=== PATIENT | male | born 1970 | race Caucasian/White ===

== ENCOUNTER 2024-05-23 02:55 | Emergency (ER) | payer OTHER, SELFPAY ==
[~2024-05-23] VITALS: Ht 180.3 cm; Wt 100.0 kg
[2024-05-23 02:55] VITALS: BP 122/83; PULSE 84; RESP 20; O2SAT 96
[2024-05-23 03:53] LABS: Basophils # (auto) 0.1 10 ^3/uL (0-0.2); Basophils % (auto) 0.7 % (0.0-2.0); Eosinophils # (auto) 0.3 10 ^3/uL (0-0.8); Eosinophils % (auto) 2.8 % (0.0-7.0); Hematocrit 46.2 % (41.0-53.0); Hemoglobin 15.9 g/dL (13.5-17.5); Lymphocytes # (auto) 1.1 10 ^3/uL (0.4-5.4); Mean Corpuscular Hemoglobin 29.5 pg (28.0-32.0); Mean Corpuscular Hgb Conc. 34.3 g/dL (32.0-36.0); Mean Corpuscular Volume 85.8 fL (80.0-100.0); Monocytes # (auto) 0.8 10 ^3/uL (0-1.3); Monocytes % (auto) 8.1 % (0.0-12.0); Neutrophils # (auto) 7.5 10 ^3/uL (1.6-8.6); Neutrophils % (auto) 77.4 % (37.0-80.0); Nucleated Red Blood Cells % 0.1 %; Platelet Count (auto) 187 10^3/uL (140-450); Red Blood Cells 5.39 10^6/uL (4.5-5.90); Red Cell Distribution Width 13.8 % (11.8-14.3); White Blood Cell 9.6 10^3/uL (4.4-10.8)
[2024-05-23 04:11] LABS: Alanine Aminotransferase 18 U/L (7-40); Alkaline Phosphatase 75 U/L (46-116); Anion Gap 8 (5-15); Aspartate Aminotransferase 11 U/L (13-40); BUN/Creatinine Ratio 22.5 (10.0-20.0); Bilirubin, Total 0.4 mg/dL (0.2-1.0); Blood Urea Nitrogen 16 mg/dL (9-23); Calcium 9.1 mg/dL (8.7-10.4); Carbon Dioxide 23 mmol/L (20-31); Chloride 106 mmol/L (98-107); Glucose 237 mg/dL (74-106); Lipase 33 U/L (12-53); Potassium 3.8 mmol/L (3.5-5.1); Sodium 137 mmol/L (136-145); Total Protein 6.3 g/dL (5.7-8.2)
== END 2024-05-23 06:11 | disposition home or self-care (01) ==
LOC: EDBD 02:55 → ER 02:55
DX: K52.9 Noninfective gastroenteritis and colitis, unspecified (principal); E11.9 Type 2 diabetes mellitus without complications
CPT/HCPCS: 36415; 80053; 83690; 84484; 85025; 93005

== ENCOUNTER 2024-07-23 16:43 | Emergency (ER) | payer SELFPAY ==
[~2024-07-23] VITALS: Ht 180.3 cm; Wt 102.0 kg
--- NOTE | 2024-07-23 18:31 | DVH ---
RIGHT Upper Extremity Venous Duplex Clinical History: INJURY R/O DVT Comparison: None Technique: Duplex Doppler evaluation of the venous system of the RIGHT lower neck and upper extremity including color Doppler and spectral/pulsed waveform analysis was performed. Findings: The internal jugular vein demonstrates appropriate compressibility and waveform variability. The subclavian vein is patent on color Doppler evaluation without intraluminal thrombus and demonstra afsaneh waveform variability. The visualized portion of the brachiocephalic vein is patent on color Doppler evaluation without intr aluminal thrombus and demonstrates waveform variability. The axillary vein demonstrates appropriate compressibility and waveform variability. The brachial veins demonstrate appropriate compressibility and patency on Doppler evaluation. The basilic vein demonstrates appropriate compressibility and patency on Doppler evaluation. The cephalic vein demonstrates appropriate compressibility and patency on Doppler evaluation. Impression: No venous thrombus identified in the RIGHT upper extremity vessels evaluated above. If clinical concern/symptoms persist or worsen, short-interval follow-up study is suggested. The ultrasound worksheet states there is a anechoic structure measuring 6.2 cm of the area of interes t however the given images demonstrate a heterogeneously hypoechoic 2 cm lesion in the right upper ar m soft tissue which is not visualized on same-day CT. Question whether this represents a hematoma . C onsider follow-up ultrasound for monitoring.
--- NOTE | 2024-07-23 18:35 | DVH ---
INDICATION: INJURY COMPARISON: None TECHNIQUE: CT of the right upper extremity was performed without contrast. Volume transverse images w ere obtained and reconstructed in multiple planes using bone and soft tissue algorithms. CONTRAST: None Radiation Dose Information: CTDI volume is 32.29 mGy. Dose-length product is 1407.57 mGy*cm Findings/ IMPRESSION: No acute fracture. Moderate degenerative changes of the right AC joint. Nlua-dx-rwygiojj degenerativ e changes of the glenohumeral joint. No dislocation or focal osseous lesion. The soft tissues are normal. The imaged portions of the mediastinum and right hemithorax are normal. All CT scans at this medical facility are performed using dose modulation techniques as appropriate t o a performed exam including the following: Automated exposure control was utilized; adjustment of th e MA and/or KV according to patient size; and use of iterative reconstruction technique.
--- NOTE | 2024-07-23 19:47 | ED.PDOC ---
Musculoskeletal HPI Comments HPI: Poor Historian. 54-year-old male presents to the emergency department for evaluation of right shoulder right arm pain/injury that happened at work at [employer]. Patient was helping lifting a stack of tiles and as he was lifting it up and throwing it in a container, he felt an immediate sharp pain in his right distal shoulder region near the deltoid and below the deltoid and he noted a bulging swelling in that area for the last few days. This injury happened on proximally four days ago. The area is tender to palpation and swollen. There is minimal contus ion of the medial aspect of the humerus region. He complains of decreased range of motion secondary to pain with certain movement of the right upper extremity. Patient has been taking Advil and Tylenol for pain control. Patient is not on any blood thinners. Patient also complains of right pinky finger intermittent numbness and tingling. Past Medcial History: Hyperlipidemia, hypertension, diabetes Past Surgical History: Denies any REVIEW OF SYSTEMS: CONSTITUTIONAL: Denies acute: fever, diaphoresis, chills, generalized weakness. HEAD: Denies acute: headache, photophobia Eyes: Denies acute: Double vision, vision loss, eye pain, eye discharge. EARS: Denies acute: tinnitus, hearing loss, ear discharge, ear pain, THROAT: Denies acute: sore throat, swelling, difficulty swallowing , pain with swallowing, change in voice. NECK: Denies acute: neck pain, neck swelling, stiff neck. HEART: Denies acute : chest pain, palpitations, LUNGS: Denies acute: SOB, wheezing, cough, hemoptysis ABDOMEN: Denies acute: abdominal pain, Nausea, Vomiting, diarrhea, melena , hematemesis, hematochezia SKIN: Denies acute: rash, redness, lesions, itchiness. EXTREMITIES: Denies acute: calf pain, numbness, tingling, weakness, Denies acute: Low back pain. Neuro: Denies acute: focal neurological deficit, motor or sensory focal neurological deficit, tremors, seizure like activity, confusion, dizziness, change in mental status, loss of bowel or bladder function, cauda equina like symptoms. : Denies acute: dysuria, hematuria, flank pain, increase in urinary frequency. PSYCH: Denies acute: hallucination, suicidal ideation, homicidal ideation. PHYSICAL EXAM: General: Mild acute distress, awake and alert. Head: normocephalic, atraumatic. Neck: supple, trachea is midline, no swelling. Throat: Normal phonation. Eyes:, no erythema, no purulent discharge, no proptosis, no icterus. Heart: regular rate, regular rhythm, no significant murmur appreciated. Lungs: no apparent respiratory distress, Able to speak in full sentences. No wheezing, no rhonchi, no crackles. No stridors Clear to auscultation bilaterally. Abdomen: non tender to palpation, non distended, soft, no guarding, no rebound, + bowel sounds. Neuro: Awake, Alert, oriented to name, self, situation, follows commands GCS=15. Speech is normal. Skin: no petechia, no purpura, no cyanosis, non-pale, not jaundice. Lower extremities: --no - Pitting edema no deformity, no focal swelling, no calf TTP. Evaluation of the right upper extremity.: There is decreased range of motion of the right upper extremity due to pain. Isn't able to fully raise his arm. He is not able to lift heavy weight with his right upper extremity. Radial pulses palpable. Patient has a good cereal popper muscle. Sensation and motor are present. Patient is neurovascularly intact in the affected extremity. There is noted swelling below the right deltoid that is tender to palpation. Makes eye contact. moves all four extremities. Face: no apparent facial droop. Ambulating in the ED independently. Chief Complaint: Upper Extremity Time Seen by MD: 17:52 Primary Care Provider: WORK [employer] Reviewed Notes: Nurses Notes, Medications, Allergies Allergies: Coded Allergies: NO KNOWN ALLERGIES (Unverified , 07/23/24) Information Source: Patient Mode of Arrival: Ambulatory Location: Right Past Medical History PAST MEDICAL HISTORY: DM, HIV Surgical History: Denies all surgeries Family History Family History: Reviewed,noncontributory to illness Social History Smoker: Non-Smoker Alcohol: Denies ETOH Use Drugs: Denies Drug Use Lives In: Home X-Ray, Labs, Meds, VS Vital Signs Date Time Temp Pulse Resp B/P (MAP) Pulse Ox O2 Delivery O2 Flow Rate FiO2 07/23/24 17:20 98.2 92 18 126/91 (103) 97 Lab Test 07/23/24 19:59 Range/Units White Blood Count 9.0 4.4-10.8 10^3/uL Red Blood Count 5.91 H 4.5-5.90 10^6/uL Hemoglobin 16.9 13.5-17.5 g/dL Hematocrit 50.3 41.0-53.0 % Mean Corpuscular Volume 85.1 80.0-100.0 fL Mean Corpuscular Hemoglobin 28.6 28.0-32.0 pg Mean Corpuscular Hemoglobin Concent 33.7 32.0-36.0 g/dL Red Cell Distribution Width 13.4 11.8-14.3 % Platelet Count 207 140-450 10^3/uL Mean Platelet Volume 9.4 6.9-10.8 fL Neutrophils (%) (Auto) 70.6 37.0-80.0 % Lymphocytes (%) (Auto) 18.0 10.0-50.0 % Monocytes (%) (Auto) 7.6 0.0-12.0 % Eosinophils (%) (Auto) 3.0 0.0-7.0 % Basophils (%) (Auto) 0.8 0.0-2.0 % Neutrophils # (Auto) 6.4 1.6-8.6 10 ^3/uL Lymphocytes # (Auto) 1.6 0.4-5.4 10 ^3/uL Monocytes # (Auto) 0.7 0-1.3 10 ^3/uL Eosinophils # (Auto) 0.3 0-0.8 10 ^3/uL Basophils # (Auto) 0.1 0-0.2 10 ^3/uL Nucleated Red Blood Cells 0.0 % Prothrombin Time 10.0 9.3-11.8 sec Prothrombin Time INR 0.94 0.9-1.15 Activated Partial Thromboplast Time 25.4 24.5-34.5 SEC Sodium Level 134 L 136-145 mmol/L Potassium Level 4.1 3.5-5.1 mmol/L Chloride Level 101 98-107 mmol/L Carbon Dioxide Level 30 20-31 mmol/L Anion Gap 3 L 5-15 Blood Urea Nitrogen 14 9-23 mg/dL Creatinine 0.84 0.700-1.30 mg/dL Glomerular Filtration Rate Calc 103 >90 mL/min BUN/Creatinine Ratio 16.7 10.0-20.0 Serum Glucose 347 H 74-106 mg/dL Calcium Level 9.6 8.7-10.4 mg/dL [address] [address] Ph: [phone] DIAGNOSTIC IMAGING Diagnostic Imaging Report : [id number] Signed PATIENT: AVRIL ISIDRO ACCT: [id number] UNIT: [id number] : 1970 LOC: ER ROOM / BED: / AGE / SEX: 54 / M ADM STATUS: REG ER SERVICE 33 ORDERING PHYSICIAN: AUNDREA COOLEY DO PROCEDURE(s): UPEWO - UPPER EXTREMITY WO CONTRAST REASON: INJURY ORDER NUMBER(s): [id number], ACCESSION NUMBER(s): [id number] INDICATION: INJURY COMPARISON: None TECHNIQUE: CT of the right upper extremity was performed without contrast. Volume transverse images were obtained and reconstructed in multiple planes using bone and soft tissue algorithms. CONTRAST: None Radiation Dose Information: CTDI volume is 32.29 mGy. Dose-length product is 1407.57 mGy*cm Findings/ IMPRESSION: No acute fracture. Moderate degenerative changes of the right AC joint. Anng-ai-ligkpidq degenerative changes of the glenohumeral joint. No dislocation or focal osseous lesion. The soft tissues are normal. The imaged portions of the mediastinum and right hemithorax are normal. All CT scans at this medical facility are performed using dose modulation techniques as appropriate to a performed exam including the following: Automated exposure control was utilized; adjustment of the MA and/or KV according to patient size; and use of iterative reconstruction technique. ATED BY: JOSE CARLOS BAIRES DO DICTATED DATE/TIME: 07/23/241832 SIGNED BY: JOSE CARLOS BAIRES DO SIGNED DATE/TIME: 07/23/241832 CC: [address] [address] Ph: [phone] DIAGNOSTIC IMAGING Diagnostic Imaging Report : [id number] Signed PATIENT: AVRIL ISIDRO ACCT: [id number] UNIT: [id number] : 1970 LOC: ER ROOM / BED: / AGE / SEX: 54 / M ADM STATUS: REG ER SERVICE 1734 ORDERING PHYSICIAN: AUNDREA COOLEY DO PROCEDURE(s): RUDVT - Rt Upper DVT REASON: INJURY R/O DVT ORDER NUMBER(s): [id number], ACCESSION NUMBER(s): [id number] RIGHT Upper Extremity Venous Duplex Clinical History: INJURY R/O DVT Comparison: None Technique: Duplex Doppler evaluation of the venous system of the RIGHT lower neck and upper extremity including color Doppler and spectral/pulsed waveform analysis was performed. Findings: The internal jugular vein demonstrates appropriate compressibility and waveform variability. The subclavian vein is patent on color Doppler evaluation without intraluminal thrombus and demonstrates waveform variability. The visualized portion of the brachiocephalic vein is patent on color Doppler evaluation without intraluminal thrombus and demonstrates waveform variability. The axillary vein demonstrates appropriate compressibility and waveform variability. The brachial veins demonstrate appropriate compressibility and patency on Doppler evaluation. The basilic vein demonstrates appropriate compressibility and patency on Doppler evaluation. The cephalic vein demonstrates appropriate compressibility and patency on Doppler evaluation. Impression: No venous thrombus identified in the RIGHT upper extremity vessels evaluated above. If clinical concern/symptoms persist or worsen, short-interval follow-up study is suggested. The ultrasound worksheet states there is a anechoic structure measuring 6.2 cm of the area of interest however the given images demonstrate a heterogeneously hypoechoic 2 cm lesion in the right upper arm soft tissue which is not visualized on same-day CT. Question whether this represents a hematoma . Consider follow-up ultrasound for monitoring. ATED BY: JOSE CARLOS BAIRES DO DICTATED DATE/TIME: 07/23/241828 SIGNED BY: JOSE CARLOS BAIRES DO SIGNED DATE/TIME: 07/23/241828 CC: Time of 1ST Reevaluation: 21:19 Reevaluation 1ST: Unchanged Departure 1 Departure Time of Disposition: 21:19 Impression: Primary Impression: Right shoulder injury Additional Impression: Injury of right upper extremity Disposition: 01 HOME / SELF CARE / HOMELESS Condition: Stable Additional Instructions: Additional discharge instructions: You MUST follow-up with your primary care/family doctor in 1 to 2 days. If you are unable to see your primary care/family doctor, please return to our emergency room for re-assessment and re-evaluation in 1 to 2 days. Return to the emergency room here in our facility or to the nearest ER [facility] if your symptoms change or worsen. CONSULTATIONS: you MUST Follow-up for consultation as soon as possible with: orthopedic surgery in 1-2 days. You MUST call the consultants office yourself to make an appointment. You may need to arrange that through your insurance and/or your primary/family doctor. If you are unable to see the packaging sales consultant in 1 to 2 days, you must return to our emergency room (or any other ER of your choice) for re-assessment and re- evaluation. Adequate fluid hydration. Off work until re-evaluated by worker's compensation and orthopedic surgery. You will need an MRI as soon as possible. Below is a copy of your radiological report for follow up: Use leak-nkh-ckzqrle Tylenol as needed for pain control as instructed. Continue wearing your shoulder arm sling. [place] [address] Ph: [phone] DIAGNOSTIC IMAGING Diagnostic Imaging Report : [id number] Signed PATIENT: AVRIL ISIDRO ACCT: [id number] UNIT: [id number] : 1970 LOC: ER ROOM / BED: / AGE / SEX: 54 / M ADM STATUS: REG ER SERVICE 1596 ORDERING PHYSICIAN: AUNDREA COOLEY DO PROCEDURE(s): UPEWO - UPPER EXTREMITY WO CONTRAST REASON: INJURY ORDER NUMBER(s): [id number], ACCESSION NUMBER(s): [id number] INDICATION: INJURY COMPARISON: None TECHNIQUE: CT of the right upper extremity was performed without contrast. Volume transverse images were obtained and reconstructed in multiple planes using bone and soft tissue algorithms. CONTRAST: None Radiation Dose Information: CTDI volume is 32.29 mGy. Dose-length product is 1407.57 mGy*cm Findings/ IMPRESSION: No acute fracture. Moderate degenerative changes of the right AC joint. Lxrm-kd-ipjrdyta degenerative changes of the glenohumeral joint. No dislocation or focal osseous lesion. The soft tissues are normal. The imaged portions of the mediastinum and right hemithorax are normal. All CT scans at this medical facility are performed using dose modulation t echniques as appropriate to a performed exam including the following: Automated exposure control was utilized; adjustment of the MA and/or KV according to patient size; and use of iterative reconstruction technique. ATED BY: JOSE CARLOS BAIRES DO DICTATED DATE/TIME: 07/23/241832 SIGNED BY: JOSE CARLOS BAIRES DO SIGNED DATE/TIME: 07/23/241832 CC: [place] [address] Ph: [phone] DIAGNOSTIC IMAGING Diagnostic Imaging Report : [id number] Signed PATIENT: AVRIL ISIDRO ACCT: [id number] UNIT: [id number] : 1970 LOC: ER ROOM / BED: / AGE / SEX: 54 / M ADM STATUS: REG ER SERVICE 33 ORDERING PHYSICIAN: AUNDREA COOLEY DO PROCEDURE(s): RUDVT - Rt Upper DVT REASON: INJURY R/O DVT ORDER NUMBER(s): [id number], ACCESSION NUMBER(s): [id number] RIGHT Upper Extremity Venous Duplex Clinical History: INJURY R/O DVT Comparison: None Technique: Duplex Doppler evaluation of the venous system of the RIGHT lower neck and upper extremity including color Doppler and spectral/pulsed waveform analysis was performed. Findings: The internal jugular vein demonstrates appropriate compressibility and waveform variability. The subclavian vein is patent on color Doppler evaluation without intraluminal thrombus and demonstrates waveform variability. The visualized portion of the brachiocephalic vein is patent on color Doppler evaluation without intraluminal thrombus and demonstrates waveform variability. The axillary vein demonstrates appropriate compressibility and waveform variability. The brachial veins demonstrate appropriate compressibility and patency on Doppler evaluation. The basilic vein demonstrates appropriate compressibility and patency on Doppler evaluation. The cephalic vein demonstrates appropriate compressibility and patency on Dop pler evaluation. Impression: No venous thrombus identified in the RIGHT upper extremity vessels evaluated above. If clinical concern/symptoms persist or worsen, short-interval follow-up study is suggested. The ultrasound worksheet states there is a anechoic structure measuring 6.2 cm of the area of interest however the given images demonstrate a heterogeneously hypoechoic 2 cm lesion in the right upper arm soft tissue which is not visualized on same-day CT. Question whether this represents a hematoma . Consider follow-up ultrasound for monitoring. ATED BY: JOSE CARLOS BAIRES DO DICTATED DATE/TIME: 07/23/241828 SIGNED BY: JOSE CARLOS BAIRES DO SIGNED DATE/TIME: 07/23/241828 CC: Discharged With: Self, Spouse AUNDREA COOLEY Tigist PARKS Jul 23, 2024 19:47
[2024-07-23 20:29] LABS: Basophils # (auto) 0.1 10 ^3/uL (0-0.2); Basophils % (auto) 0.8 % (0.0-2.0); Eosinophils # (auto) 0.3 10 ^3/uL (0-0.8); Hematocrit 50.3 % (41.0-53.0); Hemoglobin 16.9 g/dL (13.5-17.5); Lymphocytes # (auto) 1.6 10 ^3/uL (0.4-5.4); Mean Corpuscular Hemoglobin 28.6 pg (28.0-32.0); Mean Corpuscular Hgb Conc. 33.7 g/dL (32.0-36.0); Mean Corpuscular Volume 85.1 fL (80.0-100.0); Monocytes # (auto) 0.7 10 ^3/uL (0-1.3); Monocytes % (auto) 7.6 % (0.0-12.0); Neutrophils # (auto) 6.4 10 ^3/uL (1.6-8.6); Neutrophils % (auto) 70.6 % (37.0-80.0); Platelet Count (auto) 207 10^3/uL (140-450); Red Blood Cells 5.91 10^6/uL (4.5-5.90); Red Cell Distribution Width 13.4 % (11.8-14.3)
[2024-07-23 20:44] LABS: Chloride 101 mmol/L (98-107); Potassium 4.1 mmol/L (3.5-5.1)
[2024-07-23 20:46] LABS: Anion Gap 3 (5-15); Calcium 9.6 mg/dL (8.7-10.4); Carbon Dioxide 30 mmol/L (20-31); Sodium 134 mmol/L (136-145)
[2024-07-23 20:48] LABS: INR 0.94 (0.9-1.15); Partial Thromboplastin Time 25.4 SEC (24.5-34.5)
[2024-07-23 20:51] LABS: BUN/Creatinine Ratio 16.7 (10.0-20.0); Blood Urea Nitrogen 14 mg/dL (9-23)
[2024-07-23 20:52] LABS: Glucose 347 mg/dL (74-106)
[2024-07-23] MEDS: HYDROcodone-ACET 5/325MG TAB PO ONE (22:07)
[2024-07-23 22:15] VITALS: BP 147/93; PULSE 90; RESP 18; TEMP 98.2; O2SAT 96
== END 2024-07-23 22:13 | disposition home or self-care (01) ==
LOC: ER 16:43
DX: S49.91XA Unspecified injury of right shoulder and upper arm, initial encounter (principal); E11.9 Type 2 diabetes mellitus without complications; E78.5 Hyperlipidemia, unspecified; I10 Essential (primary) hypertension; X50.1XXA Overexertion from prolonged static or awkward postures, initial encounter; Y93.89 Activity, other specified; Y92.89 Other specified places as the place of occurrence of the external cause; Y99.0 Civilian activity done for income or pay
CPT/HCPCS: 36415; 73200; 80048; 85025; 85610; 85730; 93971

== ENCOUNTER 2024-09-07 13:59 | Emergency (ER) | payer OTHER, SELFPAY ==
[~2024-09-07] VITALS: Ht 180.3 cm; Wt 102.5 kg
--- NOTE | 2024-09-07 14:55 | ED.PDOC ---
History of Present Illness HPI Comments 55-year-old male who comes in with chief complaint of shoulder pain. The patient was status post injury of the right shoulder on 07/23. The patient was seen our facility and then sent to his workman's comp doctor. At that time, an MRI was done after being seen by jewel lopez. The patient was found to have rotator cuff arthropathy as well as degenerative changes in the humeral head. There is a 4 x 4 cm full-thickness degenerative delaminated retracted tears of both the supraspinatus and the infraspinatus from the insertional activity well beyond the labor level with marked atrophy and fatty change of the muscle groups with the scapular fossa. Currently they are awaiting a referral to the orthopedic surgeon which is scheduled at the end of next month. The patient is now saying that he has some increased pain as well as numbness in the fingers. The patient has no other complaints at this time. He is accompanied in the emergency department's by his . The patient was also run out of his [place] Chief Complaint: Upper Extremity Time Seen by MD: 14:25 Primary Care Provider: KIARA LOPEZ Reviewed Notes: Nurses Notes, Medications, Allergies (No allergies to medications) Allergies: Coded Allergies: NO KNOWN ALLERGIES (Unverified , 07/23/24) Home Meds Active Scripts Hydrocodone-Acetaminophen (Hydrocodone Bitartrate/AC 5-325 mg) 1 Tab Tab, 1 TAB PO Q8HP PRN for 7 Days, #21 TAB Prov:IVY FUNG MD 09/07/24 Information Source: Patient, Spouse Mode of Arrival: Ambulatory Severity: Moderate Timing: Days Duration: Since onset Prehospital treatment: None Associated signs and symptoms Right shoulder pain Past Medical History PAST MEDICAL HISTORY: DM Surgical History: Denies all surgeries Family History Family History: Family hx of heart jocelyn Social History Smoker: Non-Smoker Alcohol: Occasionally Drugs: Denies Drug Use Lives In: Home Constitutional: denies: chills, diaphoresis, fatigue, fever, malaise, sweats, weakness, others EENTM: denies: blurred vision, double vision, ear bleeding, ear discharge, ear drainage, ear pain, ear ringing, eye pain, eye redness, hearing loss, mouth pain, mouth swelling, nasal discharge, nose bleeding, nose congestion, nose pain, photophobia, tearing, throat pain, throat swelling, voice changes, others Respiratory: denies: cough, hemoptysis, orthopnea, SOB at rest, shortness of breath, SOB with excertion, stridor, wheezing, others Cardiovascular: denies: chest pain, dizzy spells, diaphoresis, Dyspnea on exertion, edema, irregular heart beat, left arm pain, lightheadedness, palpitations, PND, syncope, others Gastrointestinal: denies: abdomen distended, abdominal pain, blood streaked bowels, constipated, diarrhea, dysphagia, difficulty swallowing, hematemesis, melena, nausea, poor appetite, poor fluid intake, rectal bleeding, rectal pain, vomiting, others Genitourinary: denies: burning, dysuria, flank pain, frequency, hematuria, incontinence, penile discharge, penile sore, pain, testicle pain, testicle swelling, urgency, others Neurological: denies: dizziness, fainting, headache, left sided numbness, left sided weakness, numbness, paresthesia, pre-existing deficit, right sided numbness, right sided weakness, seizure, speech problems, tingling, tremors, weakness, others Musculoskeletal: reports: others (Right shoulder pain); denies: back pain, gout , joint pain, joint swelling, muscle pain, muscle stiffness, neck pain Integumetry: denies: bruises, change in color, change in hair/nails, dryness, laceration, lesions, lumps, rash, wounds, others Allergic/Immunocompromised: denies: Difficulty Healing, Frequent Infections, Hives, Itching, others Hematologic/Lymphatic: denies: anemia, blood clots, easy bleeding, easy bruising, swollen glands, others Endocrine: denies: excessive hunger, excessive sweating, excessive thirst, excessive urination, flushing, intolerance to cold, intolerance to heat, u nexplained weight gain, unexplained weight loss, others Psychiatric: denies: anxiety, bipolar disorder, depression, hopeless, panic disorder, schizophrenia, sleepless, suicidal, others Physical Exam General Appearance: No Apparent Distress HEENT: Normal ENT Inspection, Pharynx Normal, TMs Normal Neck: Full Range of Motion, Non-Tender, Normal, Normal Inspection Respiratory: Chest Non-Tender, Lungs Clear, No Accessory Muscle Use, No Respiratory Distress, Normal Breath Sounds Cardiovascular: No Edema, No JVD, No Murmur, No Gallop, Normal Peripheral Pulses, Regular Rate/Rhythm Breast Exam: Deferred Gastrointestinal: No Organomegaly, Non Tender, No Pulsatile Mass, Normal Bowel Sounds, Soft Genitalia: Deferred Pelvic: Deferred Rectal: Deferred Extremities: No calf tenderness, Normal capillary refill, No pedal edema, Other (The right shoulder is in a sling and immobilizer) Musculoskeletal : Apperance: Normal Neurologic: Alert, 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 Was a procedure done?: No Differential Dx Considerations may include: Fracture, dislocation, strain X-Ray, Labs, Meds, VS Vital Signs Date Time Temp Pulse Resp B/P (MAP) Pulse Ox O2 Delivery O2 Flow Rate FiO2 09/07/24 15:38 90 17 97 Room Air 09/07/24 15:38 97.9 90 17 145/79 (101) 97 97.9 09/07/24 14:12 98.2 92 24 154/91 (112) 98 Current Medications Medications (Trade) Dose Ordered Sig/Neo Route Start Time Stop Time Status Last Admin Acetaminophen/ Hydrocodone Bitart ([place] 10/325MG Tab) 1 tab ONCE ONCE PO 09/07/24 15:00 09/07/24 15:01 DC 09/07/24 15:37 The patient was given [place] here in the emergency department's We attempted multiple times to contact the orthopedic surgeon but at this time we were not able to move the patient's appointment The patient was being discharged and given a prescription of [place] for a refill Time of 1ST Reevaluation: 14:55 Reevaluation 1ST: Unchanged Time of 2ND Reevaluation: 16:32 Reevaluation 2ND: Unchanged Patient Education/Counseling: Diagnosis, Treatment, Prognosis, Need For Follow Up Family Education/Counseling: Diagnosis, Treatment, Prognosis, Need For Follow Up Departure 1 Departure Time of Disposition: 16:32 Impression: Primary Impression: Rotator cuff injury Qualified Codes: S46.001D - Unspecified injury of muscle(s) and tendon(s) of the rotator cuff of right shoulder, subsequent encounter Disposition: 01 HOME / SELF CARE / HOMELESS Condition: Fair e-Prescriptions Hydrocodone-Acetaminophen (Hydrocodone Bitartrate/AC 5-325 mg) 1 Tab Tab 1 TAB PO Q8HP PRN for 7 Days, #21 TAB Prov: IVY FUNG MD 09/07/24 Discharged With: Self Critical Care Note Critical Care Time?: No Stability Stability form required: No Heart Score Heart Score: Heart Score Response (Comments) Value History N/A 0 EKG N/A 0 Age N/A 0 Risk Factors N/A 0 Troponin N/A 0 Total 0 IVY FUNG MD Sep 07, 2024 14:55
[2024-09-07] MEDS: HYDROcodone-ACET 10/325MG TAB PO ONE (15:37)
[2024-09-07] MEDS ORDERED: HYDR-4902 PO (16:30)
[2024-09-07 16:31] VITALS: PULSE 90; RESP 16; O2SAT 97
[2024-09-07 17:29] VITALS: BP 150/90; PULSE 87; RESP 16; TEMP 98.7; O2SAT 97
== END 2024-09-07 17:30 | disposition home or self-care (01) ==
LOC: ER 13:59 → EDBD 13:59 → ER 17:30
DX: S46.001A Unspecified injury of muscle(s) and tendon(s) of the rotator cuff of right shoulder, initial encounter (principal); E11.9 Type 2 diabetes mellitus without complications; X58.XXXA Exposure to other specified factors, initial encounter; Y93.89 Activity, other specified; Y92.89 Other specified places as the place of occurrence of the external cause; Y99.8 Other external cause status